=== PATIENT | female | born 1950 | race Caucasian/White ===

== ENCOUNTER → 2017-04-14 | Outpatient (POV) | LOC: OUTPT 00:01 | PROVIDERS: ATTEND Otolaryngology | DX: H91.90 Unspecified hearing loss, unspecified ear (principal) | CPT/HCPCS: 92557; 92567 ==

== ENCOUNTER 2018-05-24 13:00 | Outpatient (RCR) ==
--- NOTE | 2018-05-06 15:31 | RS.OPPTEV2 ---
Date of Note: 05/06/18 Visit #: 1 Date of Evaluation: 05/06/18 Payer Source: MEDICARE Date of Onset/Injury/Change in Status: 04/01/18 Surgery Performed?: No Treatment Diagnosis: closed displaced fx of proximal end of R humerus. History of Condition/Mechanism of Injury:: pt states she fell on concrete landing on her arm. Prior Level of Function.....Patient was independent with: ADL's, Self Care, Caregiving, Ambulation/Mobility, Community Integration/Access Functional Limitations: Reaching, Pushing, Pulling, Lifting, Carrying Current Subjective/complaints:: pt states she is doing pretty well. pt is anxious to get back to her normal activities. Treatment Side (optional): Right *Precautions: no lifting Medical History Medical History: Unremarkable Surgical History: Hysterectomy, Surgical History Comments:: lump removed from L breast, toe surgery Smoking Status: Never smoker Hx Home Medications: pepcid, vit D3, "water pill" flonase, tums, B12, vit C, fish oil Patient's Goals: be able to get back to babysitting grandchildren and laundry etc. Pain Assessment - Pain Description Pain Location: R shld Pain Description: Aching Current Pain Intensity: 0 at rest Functional Outcome Measure UE Functional Index: 13 (84%) - G Codes & Severity Modifier G Codes & Modifier: carrying, moving, and handling objects: current CM. carrying, moving, and handling objects: goal CK Source of G Code score: Upper extremity functional scale Observation - Observation Posture: Forward Head, Rounded Shoulders Handedness: Right Gait - Gait Pattern General Gait Pattern Observation: No Deviations/Normal General Range of Motion: LUE WFL's. BLE WFL's Muscle Strength: LUE 5/5. BLE 5/5 Shoulder ROM: Left WFL's Shoulder Muscle Strength: Left WFL's - Right Shoulder ROM Right Shoulder Flexion: 90 (AAROM) Right Shoulder Abduction: 41 (AAROM) Right Shoulder External Rotation: 27 Right Shoulder ROM Limitations: Soft Tissue Tightness, Muscle Weakness, Muscle Tone, Pain - Left Shoulder Strength Left Shoulder Flexion: 2 Poor Left Shoulder Extension: 3- Fair- Left Shoulder Abduction: 2 Poor Left Shoulder Adduction: 3- Fair- Left Shoulder External Rotation: 2 Poor Left Shoulder Internal Rotation: 3- Fair- Palpation Palpation Findings: Tenderness, Trigger Point Comments:: tenderness and trigger points noted in R Upper trap and upper scapula area Sensation - Sensation Right Upper Extremity: Intact/Normal Left Upper Extremity: Intact/Normal Right Lower Extremity: Intact/Normal Left Lower Extremity: Intact/Normal Balance - Sitting Balance Static Sitting Balance: Normal Dynamic Sitting Balance: Normal - Standing Balance Static Standing Balance: Normal Dynamic Standing Balance: Normal - Heat/Cryotherapy Treatment: Cryotherapy Comments:: R shld Interventions - Exercise/Activities/Manual Therapy Exercises/Activities: pt received gentle AAROM R shld flex, abd, IR/ER. pt also performed wand ex with shld flex and horizontal abd/add, isometric R shld ext, flex, add. Total minutes of Exercise: 14 Manual Therapy: n/a HOME EXERCISE PROGRAM: pt given written HEP including AAROM with wand for shld flex, horizontal add/abd, isometric shld flex, ext, add. Also instructed pt to continue pendulum ex. - Charges Timed Code Treatment Minutes: 49 Total Treatment Time: 54 Procedures billed for this date of service:: eval low, ex EVALUATION COMPLEXITY LEVEL EVALUATION COMPLEXITY LEVEL: HISTORY: Low (humerus fx), EXAM OF BODY SYSTEMS: Medium (ROM, strength, posture), CLINICAL PRESENTATION: Low, CLINICAL DECISION MAKING: Low Assessment Assessment: pt presents with decreased strength, ROM R shld. pt also with pain R shld. pt appears very motivated to participate with PT. Patient Education: Home Exercise Program, Education of Plan of Care Rehab Potential: Good Short Term Goals Goal #1: Improve R shld flex 100, abd 75 Goal to be met by: 05/27/18 Goal #2: Improved R UE strength shld flex 3-/5, abd 3-/5, Goal to be met by: 05/27/18 Goal #3: pt report decreased pain with activity at home Goal to be met by: 05/27/18 Goal #4: pt independent with initial HEP Goal to be met by: 05/27/18 Snf Goals Goal #1: Improve RUE shld flex 130 abd 115 Goal to be met by: 06/16/18 Goal #2: Improve RUE strength shld flex 3/5, abd 3/5, elbow flex/ext 4/5 Goal to be met by: 06/16/18 Goal #3: pt report ability to return to normal activities in the home Goal to be met by: 06/16/18 Plan - Treatment to be Provided Procedures: Therapeutic Exercises, Therapeutic Activity, Neuromuscular Rehab, Manual Therapy, Massage, Splinting/Taping, Patient Education Modalities: Electrical Stimulation, Cryotherapy, Hot Packs - Treatment Plan Frequency: 2-3 x per week Duration: 6 weeks ORDER # VISITS AND/OR THROUGH DATE: 06/16/18 - Treatment Code (1) Pain in joint, shoulder region Code(s): M25.519 - PAIN IN UNSPECIFIED SHOULDER Qualifiers: Laterality: right Qualified Code(s): M25.511 - Pain in right shoulder (2) Closed traumatic displaced fracture of proximal end of humerus Code(s): S42.209A - UNSP FRACTURE OF UPPER END OF UNSP HUMERUS, INIT FOR CLOS FX Qualifiers: Laterality: right (3) Joint stiffness Code(s): M25.60 - STIFFNESS OF UNSPECIFIED JOINT, NOT ELSEWHERE CLASSIFIED
--- NOTE | 2018-05-09 14:10 | RS.OPPTDN ---
Subjective Date of Note: 05/09/18 Visit #: 2 Date of Evaluation: 05/06/18 Payer Source: MEDICARE Treatment Diagnosis: closed displaced fx of proximal end of R humerus. Current Subjective/complaints:: Patient reports no pain at rest ,but is present the farther she reaches away from her body.She re-postions herself during the night to slep better. *Precautions: no lifting Pain Assessment - Pain Description Pain Location: R shoulder Pain Description: Sharp, Dull, Aching Current Pain Intensity: 0 at rest Worst Pain Intensity: 5 with reaching - Heat/Cryotherapy Treatment: Hot Pack, Cryotherapy (20 ins. heat before ,10 mins. after exercises) Interventions - Exercise/Activities/Manual Therapy Exercises/Activities: pt received gentle AAROM R shld flex, abd, IR/ER. pt also performed wand ex with shld flex and horizontal abd/add, isometric R shld ext, flex, add.Seted postural exercises of scapular motion ,shoulder shrugs ,forward/ backward circles. Total minutes of Exercise: 25 Manual Therapy: n/a Total minutes of Manual Therapy: 0 HOME EXERCISE PROGRAM: pt given written HEP including AAROM with wand for shld flex, horizontal add/abd, isometric shld flex, ext, add. Also instructed pt to continue pendulum ex. - Charges Timed Code Treatment Minutes: 30 Total Treatment Time: 60 Procedures billed for this date of service:: hp,ex 2,cp Assessment: Patient has sharp pain at available end range of abduction and overhead flexion today ,tolerates IR in short range.She is very guarded with ER today.She is motivated to improve. Patient Education: Education of diagnosis, Body/Joint mechanics, Home Exercise Program, Home Safety, Activity Modification, Education of Plan of Care Patient demonstrates compliance with HEP?: Yes Short Term Goals Goal #1: Improve R shld flex 100, abd 75 Goal to be met by: 05/27/18 Goal #2: Improved R UE strength shld flex 3-/5, abd 3-/5, Goal to be met by: 05/27/18 Goal #3: pt report decreased pain with activity at home Goal to be met by: 05/27/18 Goal #4: pt independent with initial HEP Goal to be met by: 05/27/18 Progress towards Goal:: Progressing Half-Way Goals Goal #1: Improve RUE shld flex 130 abd 115 Goal to be met by: 06/16/18 Goal #2: Improve RUE strength shld flex 3/5, abd 3/5, elbow flex/ext 4/5 Goal to be met by: 06/16/18 Goal #3: pt report ability to return to normal activities in the home Goal to be met by: 06/16/18 Plan PLAN OF CARE EXPIRES ON:: 06/16/18 ORDER # VISITS AND/OR THROUGH DATE: 06/16/18 PLAN: Continue PT to decrease pain ,increase ROM.
--- NOTE | 2018-05-10 15:37 | RS.OPPTDN ---
Subjective Date of Note: 05/10/18 Visit #: 3 Date of Evaluation: 05/06/18 Payer Source: MEDICARE Treatment Diagnosis: closed displaced fx of proximal end of R humerus. Current Subjective/complaints:: Patient reports mild discomfort with PROM, but increased mobility following treatment today. Continues to report tightness in the right upper traps. *Precautions: no lifting Pain Assessment - Pain Description Pain Location: right shoulder and upper traps. Current Pain Intensity: mild Worst Pain Intensity: mod+ - Heat/Cryotherapy Treatment: Hot Pack Comments:: [id number] to the right upper traps prior to MT and EX. Patient in sitting. Interventions - Exercise/Activities/Manual Therapy Exercises/Activities: Gentle PROM and AAROM right shoulder flex, abd, scaption, and IR/ER. Manually resistive shoulder ext and add in neutral position. Wand for chest press, short overhead flexion, and limited ER. Scap elevation and retraction. Total minutes of Exercise: 24mins Manual Therapy: Myofascial and soft tissue work along the bilateral upper traps with focus on the right side. Also right mid scap border and with posterior shoulder joint. Total minutes of Manual Therapy: 15mins HOME EXERCISE PROGRAM: pt given written HEP including AAROM with wand for shld flex, horizontal add/abd, isometric shld flex, ext, add. Also instructed pt to continue pendulum ex. - Charges Timed Code Treatment Minutes: 39mins Total Treatment Time: 54mins Procedures billed for this date of service:: HP, MT, EX2 Assessment: Patient reports well to MT and PROM with reports of pain reduction and increase in right shoulder joint flexibility. 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
--- NOTE | 2018-05-17 16:23 | RS.OPPTDN ---
Subjective Date of Note: 05/17/18 Visit #: 4 Date of Evaluation: 05/06/18 Payer Source: MEDICARE Treatment Diagnosis: closed displaced fx of proximal end of R humerus. Current Subjective/complaints:: Patient reports a reduction in pain and improvement in active reaching with the right UE. *Precautions: no lifting Pain Assessment - Pain Description Pain Location: right shoulder and bilateral upper traps Current Pain Intensity: mild Other Comments regarding Pain:: sharp with end range PROM - Heat/Cryotherapy Treatment: Hot Pack ([id number] to C-spine prior to MT and EX. Patient in sitting. ) Interventions - Exercise/Activities/Manual Therapy Exercises/Activities: Gentle PROM and AAROM right shoulder flex, abd, scaption, and IR/ER. Manually resistive shoulder ext and add in neutral position. Wand for chest press, short overhead flexion, and limited ER. Scap elevation and retraction. Began overhead pulleys for flexion and abduction. Total minutes of Exercise: 24mins Manual Therapy: Myofascial and soft tissue work along the bilateral upper traps with focus on the right side. Also right mid scap border and with posterior shoulder joint. Total minutes of Manual Therapy: 15mins HOME EXERCISE PROGRAM: pt given written HEP including AAROM with wand for shld flex, horizontal add/abd, isometric shld flex, ext, add. Also instructed pt to continue pendulum ex. - Charges Timed Code Treatment Minutes: 39mins Total Treatment Time: 54mins Procedures billed for this date of service:: HP, MT, EX2 Assessment: Patient demos an increase in passive flexion. Tolerates increase in exercise. Patient Education: Education of diagnosis, Body/Joint mechanics, Home Exercise Program Patient demonstrates compliance with HEP?: Yes Short Term Goals Goal #1: Improve R shld flex 100, abd 75 Goal to be met by: 05/27/18 Progress towards Goal:: Progressing Goal #2: Improved R UE strength shld flex 3-/5, abd 3-/5, Goal to be met by: 05/27/18 Goal #3: pt report decreased pain with activity at home Goal to be met by: 05/27/18 Progress towards Goal:: Progressing Goal #4: pt independent with initial HEP Goal to be met by: 05/27/18 Progress towards Goal:: Progressing Group Home Goals Goal #1: Improve RUE shld flex 130 abd 115 Goal to be met by: 06/16/18 Goal #2: Improve RUE strength shld flex 3/5, abd 3/5, elbow flex/ext 4/5 Goal to be met by: 06/16/18 Goal #3: pt report ability to return to normal activities in the home Goal to be met by: 06/16/18 Plan PLAN OF CARE EXPIRES ON:: 06/16/18 ORDER # VISITS AND/OR THROUGH DATE: 06/16/18 PLAN: Progress ROM and light active exercise to increase functional activity level.
--- NOTE | 2018-05-19 14:34 | RS.OPPTDN ---
Subjective Date of Note: 05/19/18 Visit #: 5 Date of Evaluation: 05/06/18 Payer Source: MEDICARE Treatment Diagnosis: closed displaced fx of proximal end of R humerus. Current Subjective/complaints:: Reports cervical ROM and muscle tension has improved. *Precautions: no lifting Pain Assessment - Pain Description Pain Location: right shoulder joint, upper arm, bilateral upper traps Pain Description: Aching Current Pain Intensity: no pain in shoulder at rest, mild in upper traps - Heat/Cryotherapy Treatment: Hot Pack ([id number] to the cervical spine and UT prior to MT and EX. Patient in sitting. ) Interventions - Exercise/Activities/Manual Therapy Exercises/Activities: Gentle PROM and AAROM right shoulder flex, abd, scaption, and IR/ER. Manually resistive shoulder ext and add in neutral position. Scap retraction and elevation/depression. Began cuff series, 4 directions. Continues wand and overhead pulleys at home. Active and active assisted flexion in standing. Total minutes of Exercise: 24mins Manual Therapy: Myofascial and soft tissue work along the bilateral upper traps with focus on the right side. Also right mid scap border and with posterior shoulder joint. Total minutes of Manual Therapy: 15mins HOME EXERCISE PROGRAM: pt given written HEP including AAROM with wand for shld flex, horizontal add/abd, isometric shld flex, ext, add. Also instructed pt to continue pendulum ex. Cuff series no weights. - Objective Findings Observations,measurements,etc.: Passive right shoulder flexion to approx 105 degrees in supine. Active right shoulder flexion increased to 90 degrees today. - Charges Timed Code Treatment Minutes: 39mins Total Treatment Time: 54mins Procedures billed for this date of service:: HP, MT, EX2 Assessment: Patient progressing with active and passive motion of the right shoulder. Patient Education: Body/Joint mechanics, Home Exercise Program, Activity Modification Comments: Discussion of safety with ADL's. 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
--- NOTE | 2018-05-24 14:52 | RS.OPPTDN ---
Subjective Date of Note: 05/24/18 Visit #: 6 Date of Evaluation: 05/06/18 Payer Source: MEDICARE Treatment Diagnosis: closed displaced fx of proximal end of R humerus. Current Subjective/complaints:: Patient reports she is reaaching a little bit better. States she is consistently working on HEP. *Precautions: no lifting Pain Assessment - Pain Description Pain Location: right shoulder Current Pain Intensity: No pain at rest Other Comments regarding Pain:: Pain at end range - Heat/Cryotherapy Treatment: Hot Pack ([id number] to the bilateral traps and shoulders prior to MT and EX. Patient in sitting. ) Interventions - Exercise/Activities/Manual Therapy Exercises/Activities: Gentle PROM and AAROM right shoulder flex, abd, scaption, and IR/ER. Manually resistive shoulder ext and add in neutral position. Scap retraction and elevation/depression. Distraction and gentle grade I and II joint mobs. Reveiwed cuff series, wand and overhead pulleys for HEP. Active and active assisted flexion in standing. Total minutes of Exercise: 23mins Manual Therapy: Myofascial and soft tissue work along the bilateral upper traps with focus on the right side. Also right mid scap border and with posterior shoulder joint. Total minutes of Manual Therapy: 15mins HOME EXERCISE PROGRAM: pt given written HEP including AAROM with wand for shld flex, horizontal add/abd, isometric shld flex, ext, add. Also instructed pt to continue pendulum ex. Cuff series no weights. - Objective Findings Observations,measurements,etc.: In supine, paient demos 124 degrees AA right shoulder flexion. - Charges Timed Code Treatment Minutes: 38mins Total Treatment Time: 53mins Procedures billed for this date of service:: HP, MT, EX2 Assessment: Patient progressing with ROM and with exercise. Patient Education: Home Exercise Program, Home Safety, Activity Modification Patient demonstrates compliance with HEP?: Yes Short Term Goals Goal #1: Improve R shld flex 100, abd 75 Goal to be met by: 05/27/18 Progress towards Goal:: Partially Met Goal #2: Improved R UE strength shld flex 3-/5, abd 3-/5, Goal to be met by: 05/27/18 Goal #3: pt report decreased pain with activity at home Goal to be met by: 05/27/18 Progress towards Goal:: Partially Met Goal #4: pt independent with initial HEP Goal to be met by: 05/27/18 Progress towards Goal:: Met Intermediate Goals Goal #1: Improve RUE shld flex 130 abd 115 Goal to be met by: 06/16/18 Progress towards goal: Progressing Goal #2: Improve RUE strength shld flex 3/5, abd 3/5, elbow flex/ext 4/5 Goal to be met by: 06/16/18 Goal #3: pt report ability to return to normal activities in the home Goal to be met by: 06/16/18 Plan PLAN OF CARE EXPIRES ON:: 06/16/18 ORDER # VISITS AND/OR THROUGH DATE: 06/16/18 PLAN: Continue manual therapy and progressive exercise to increase strength and ROM.
== END 2018-05-24 23:59 ==
PROVIDERS: ATTEND Orthopaedic Surgery
DX: S42.291D Other displaced fracture of upper end of right humerus, subsequent encounter for fracture with routine healing (principal); M25.511 Pain in right shoulder; M25.60 Stiffness of unspecified joint, not elsewhere classified

== ENCOUNTER 2018-06-23 08:15 | Outpatient (RCR) ==
--- NOTE | 2018-05-26 16:37 | RS.OPPTDN ---
Subjective Date of Note: 05/26/18 Visit #: 7 Date of Evaluation: 05/06/18 Payer Source: MEDICARE Treatment Diagnosis: closed displaced fx of proximal end of R humerus. Current Subjective/complaints:: Patient says she is able to see improvements with ROM and pain level since beginning therapy. Reports she is performing HEP daily, but not needing to rely on pain medication other than occasional OTC meds. *Precautions: no lifting Pain Assessment - Pain Description Pain Location: 01/01 - Heat/Cryotherapy Treatment: Hot Pack (over the R shoulder and UT in sitting x 20 mins) Interventions - Exercise/Activities/Manual Therapy Exercises/Activities: Gentle PROM and AAROM right shoulder flex, abd, scaption, and IR/ER. Manually resistive shoulder ext and add in neutral position. Scap retraction and elevation/depression. Distraction and gentle grade I and II joint mobs. Reviewed HeP. Total minutes of Exercise: 23 Manual Therapy: Myofascial and soft tissue work along the bilateral upper traps with focus on the right side. Also right mid scap border and with posterior shoulder joint. Total minutes of Manual Therapy: 16 HOME EXERCISE PROGRAM: pt given written HEP including AAROM with wand for shld flex, horizontal add/abd, isometric shld flex, ext, add. Also instructed pt to continue pendulum ex. Cuff series no weights. - Charges Timed Code Treatment Minutes: 39 Total Treatment Time: 59 Procedures billed for this date of service:: hp,MT, EX2 Assessment: Patient demo mod muscle guarding to the R UT and scapular region. Improved shoulder AROM to ~125-130 degrees avg flexion in supine, ABD limited to ~60 degrees and more difficult to vijaya than flexion, but has improved since eval. Patient compliant with HEP and admits improved pain level with leaving today. 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
--- NOTE | 2018-05-31 16:32 | RS.OPPTDN ---
Subjective Date of Note: 05/31/18 Visit #: 8 Date of Evaluation: 05/06/18 Payer Source: MEDICARE Treatment Diagnosis: closed displaced fx of proximal end of R humerus. Current Subjective/complaints:: Patient says she had increased soreness after last session, but says she feels she has more mobility and is satisfied currently with her progression. *Precautions: no lifting Pain Assessment - Pain Description Pain Location: along the R biceps - Heat/Cryotherapy Treatment: Hot Pack (R side of neck/shoulder and along biceps) Interventions - Exercise/Activities/Manual Therapy Exercises/Activities: Gentle PROM and AAROM right shoulder flex, abd, scaption, and IR/ER. Manually resistive shoulder ext and add in neutral position. Scap retraction and elevation/depression. Distraction and gentle grade I and II joint mobs. 1# wand for bilateral shoulder flexion and chest presses x 10 ea. Standing: active flexion and red tband for scap retraction x 10. Reviewed HeP. Total minutes of Exercise: 38 Manual Therapy: na HOME EXERCISE PROGRAM: pt given written HEP including AAROM with wand for shld flex, horizontal add/abd, isometric shld flex, ext, add. Also instructed pt to continue pendulum ex. Cuff series no weights. - Charges Timed Code Treatment Minutes: 38 Total Treatment Time: 58 Procedures billed for this date of service:: hp, ex3 Assessment: Patient progressing with ROM (passive shoulder flexion to 129 degrees in supine). Patient recently with increased pain, but improving with vijaya to advancing therex in dept and functionally at home. Patient Education: Body/Joint mechanics, Home Exercise Program, Education of Plan of Care Patient demonstrates compliance with HEP?: Yes Short Term Goals Goal #1: Improve R shld flex 100, abd 75 Goal to be met by: 05/27/18 Progress towards Goal:: Partially Met Goal #2: Improved R UE strength shld flex 3-/5, abd 3-/5, Goal to be met by: 05/27/18 Progress towards Goal:: Met Goal #3: pt report decreased pain with activity at home Goal to be met by: 05/27/18 Progress towards Goal:: Partially Met Goal #4: pt independent with initial HEP Goal to be met by: 05/27/18 Progress towards Goal:: Met Fpc Goals Goal #1: Improve RUE shld flex 130 abd 115 Goal to be met by: 06/16/18 Progress towards goal: Progressing Goal #2: Improve RUE strength shld flex 3/5, abd 3/5, elbow flex/ext 4/5 Goal to be met by: 06/16/18 Goal #3: pt report ability to return to normal activities in the home Goal to be met by: 06/16/18 Plan PLAN OF CARE EXPIRES ON:: 06/16/18 ORDER # VISITS AND/OR THROUGH DATE: 06/16/18 PLAN: Patient to continue progressing therex to the R shoulder
--- NOTE | 2018-06-02 16:01 | RS.OPPTDN ---
Subjective Date of Note: 06/02/18 Visit #: 9 Date of Evaluation: 05/06/18 Payer Source: MEDICARE Treatment Diagnosis: closed displaced fx of proximal end of R humerus. Current Subjective/complaints:: Patient reports he ROM is tight but improving. *Precautions: no lifting Pain Assessment - Pain Description Pain Location: right shoulder Current Pain Intensity: mild to mod at end range - Heat/Cryotherapy Treatment: Hot Pack ([id number] to the bilateral upper traps and right upper arm prior to EX. Patient in sitting. ) Interventions - Exercise/Activities/Manual Therapy Exercises/Activities: Gentle PROM and AAROM right shoulder flex, abd, scaption, and IR/ER. Manually resistive shoulder ext and add in neutral position. Distraction and gentle grade I and II joint mobs. 1# wand for bilateral shoulder flexion and chest presses x 10 ea. Isometric shoulder flex, ext, horz add and horz abd with shoulder at 90 degrees flexion. Sitting: AA flex, scap, and abd. 1# wand for bilateral shoulder flexion. Reveiwed cuff series. Total minutes of Exercise: 41mins Manual Therapy: na HOME EXERCISE PROGRAM: pt given written HEP including AAROM with wand for shld flex, horizontal add/abd, isometric shld flex, ext, add. Also instructed pt to continue pendulum ex. Cuff series no weights. - Charges Timed Code Treatment Minutes: 41mins Total Treatment Time: 56mins Procedures billed for this date of service:: HP, EX3 Assessment: Focus on end range stretching today. Patient Education: Home Exercise Program Patient demonstrates compliance with HEP?: Yes Short Term Goals Goal #1: Improve R shld flex 100, abd 75 Goal to be met by: 05/27/18 Progress towards Goal:: Partially Met Goal #2: Improved R UE strength shld flex 3-/5, abd 3-/5, Goal to be met by: 05/27/18 Progress towards Goal:: Met Goal #3: pt report decreased pain with activity at home Goal to be met by: 05/27/18 Progress towards Goal:: Partially Met Goal #4: pt independent with initial HEP Goal to be met by: 05/27/18 Progress towards Goal:: Met Fingerprint Classifier Goals Goal #1: Improve RUE shld flex 130 abd 115 Goal to be met by: 06/16/18 Progress towards goal: Progressing Goal #2: Improve RUE strength shld flex 3/5, abd 3/5, elbow flex/ext 4/5 Goal to be met by: 06/16/18 Progress towards goal: Progressing Goal #3: pt report ability to return to normal activities in the home Goal to be met by: 06/16/18 Progress towards goal: Progressing Plan PLAN OF CARE EXPIRES ON:: 06/16/18 ORDER # VISITS AND/OR THROUGH DATE: 06/16/18 PLAN: Progress with ROM to increase patients functional activity level.
--- NOTE | 2018-06-03 15:31 | RS.OPPTDN ---
Subjective Date of Note: 06/03/18 Visit #: 10 Date of Evaluation: 05/06/18 Payer Source: MEDICARE Treatment Diagnosis: closed displaced fx of proximal end of R humerus. Current Subjective/complaints:: Patient says her mobility is better in the R shoulder and is able to lift her arm higher with less trouble. She says she is working on shoulder pulleys at home. *Precautions: no lifting Pain Assessment - Pain Description Pain Location: R shoulder Pain Description: Tightness, Aching - Heat/Cryotherapy Treatment: Hot Pack (20 mins to the R upper arm and R UT in sitting) Interventions - Exercise/Activities/Manual Therapy Exercises/Activities: Gentle PROM and AAROM right shoulder flex, abd, scaption, and IR/ER. Manually resistive shoulder ext and add in neutral position. Distraction and gentle grade I and II joint mobs. 1# wand for bilateral shoulder flexion and chest presses x 10 ea. Isometric shoulder flex, ext, horz add and horz abd with shoulder at 90 degrees flexion. Sitting: AA flex, scap, and abd. 1# wand for bilateral shoulder flexion. Measurements taken and she completed UE Functional Index. Total minutes of Exercise: 38 Manual Therapy: na HOME EXERCISE PROGRAM: pt given written HEP including AAROM with wand for shld flex, horizontal add/abd, isometric shld flex, ext, add. Also instructed pt to continue pendulum ex. Cuff series no weights. - Objective Findings Observations,measurements,etc.: AA shoulder flexion in supine to 133 degrees. Active shoulder flexion in sitting to 103 degrees - Charges Timed Code Treatment Minutes: 38 Total Treatment Time: 58 Procedures billed for this date of service:: hp, ex3 Assessment: Improving ROM, but remains with scapular compensation with AROM. Improved functional Index and self reports continued improvement also. Patient Education: Home Exercise Program, Education of Plan of Care Patient demonstrates compliance with HEP?: Yes Short Term Goals Goal #1: Improve R shld flex 100, abd 75 Goal to be met by: 05/27/18 Progress towards Goal:: Partially Met Comments:: ABD still somewhat limited, met flexion goal 103 Goal #2: Improved R UE strength shld flex 3-/5, abd 3-/5, Goal to be met by: 05/27/18 Progress towards Goal:: Met Goal #3: pt report decreased pain with activity at home Goal to be met by: 05/27/18 Progress towards Goal:: Partially Met Goal #4: pt independent with initial HEP Goal to be met by: 05/27/18 Progress towards Goal:: Met Awning Maker And Installer Goals Goal #1: Improve RUE shld flex 130 abd 115 Goal to be met by: 06/16/18 Progress towards goal: Progressing Goal #2: Improve RUE strength shld flex 3/5, abd 3/5, elbow flex/ext 4/5 Goal to be met by: 06/16/18 Progress towards goal: Progressing Goal #3: pt report ability to return to normal activities in the home Goal to be met by: 06/16/18 Progress towards goal: Progressing Plan PLAN OF CARE EXPIRES ON:: 06/16/18 ORDER # VISITS AND/OR THROUGH DATE: 06/16/18 PLAN: Patient has 2 remaining sessions. She does not return to ortho until 06/16. She may benefit from attending further orders until that time.
--- NOTE | 2018-06-07 14:50 | RS.OPPTDN ---
Subjective Date of Note: 06/07/18 Visit #: 11 Date of Evaluation: 05/06/18 Payer Source: MEDICARE Treatment Diagnosis: closed displaced fx of proximal end of R humerus. Current Subjective/complaints:: Patient says she has started dusting with the R arm and stops if she has sharp pain. So far, she says she has just felt tiredness and mild soreness. She says she also has started ironing without elevated pain. She expresses being happy about her progress at this point. *Precautions: no lifting - Heat/Cryotherapy Treatment: Hot Pack (20 mins to the R upper arm and R UT in sitting) Interventions - Exercise/Activities/Manual Therapy Exercises/Activities: PROM and AAROM right shoulder flex, abd, scaption, and IR/ ER. Manually resistive shoulder ext and add in neutral position. Long axis distraction and gentle grade I and II joint mobs. 2# wand for bilateral shoulder flexion and chest presses x 10 ea. 2# elbow flex/ext, sup/pron/ wrist flex/ext x 15. Isometric shoulder flex, ext, horz add and horz abd with shoulder at 90 degrees flexion. Sitting: AAROM with 1# wand for flex/abd, Active flex, abd. x 8. Red tband scap retraction x 10. Total minutes of Exercise: 38 Manual Therapy: na HOME EXERCISE PROGRAM: pt given written HEP including AAROM with wand for shld flex, horizontal add/abd, isometric shld flex, ext, add. Also instructed pt to continue pendulum ex. Cuff series no weights. - Charges Timed Code Treatment Minutes: 38 Total Treatment Time: 58 Procedures billed for this date of service:: hp, ex3 Assessment: Patient debrao increased functional tasks at home with only general muscle fatigue and soreness. She demo increased Active shoulder flexion to 110 degrees in sitting and 90 degrees of ABD in sitting before compensation/leaning. Patient Education: Home Exercise Program, Education of Plan of Care Patient demonstrates compliance with HEP?: Yes Short Term Goals Goal #1: Improve R shld flex 100, abd 75 Goal to be met by: 05/27/18 Progress towards Goal:: Met Goal #2: Improved R UE strength shld flex 3-/5, abd 3-/5, Goal to be met by: 05/27/18 Progress towards Goal:: Met Goal #3: pt report decreased pain with activity at home Goal to be met by: 05/27/18 Progress towards Goal:: Partially Met Goal #4: pt independent with initial HEP Goal to be met by: 05/27/18 Progress towards Goal:: Met Counter Hand Goals Goal #1: Improve RUE shld flex 130 abd 115 Goal to be met by: 06/16/18 Progress towards goal: Progressing Goal #2: Improve RUE strength shld flex 3/5, abd 3/5, elbow flex/ext 4/5 Goal to be met by: 06/16/18 Progress towards goal: Progressing Goal #3: pt report ability to return to normal activities in the home Goal to be met by: 06/16/18 Progress towards goal: Progressing Plan PLAN OF CARE EXPIRES ON:: 06/16/18 ORDER # VISITS AND/OR THROUGH DATE: 06/16/18 PLAN: Patient to continue progressive therex for the R UE until follow up with 06/16/18.
--- NOTE | 2018-06-09 15:05 | RS.OPPTDN ---
Subjective Date of Note: 06/09/18 Visit #: 12 Date of Evaluation: 05/06/18 Payer Source: MEDICARE Treatment Diagnosis: closed displaced fx of proximal end of R humerus. Current Subjective/complaints:: Patient denies any increase in pain with progressing exercises last session. She says she will do what ever she needs to to gain ROM and more function of the R shoulder. States she would like to continue PT even after she sees her ortho next week. *Precautions: no lifting - Heat/Cryotherapy Treatment: Hot Pack (20 mins to the R shoulder in sitting) Interventions - Exercise/Activities/Manual Therapy Exercises/Activities: PROM and AAROM right shoulder flex, abd, scaption, and IR/ ER. Manually resistive shoulder ext and add in neutral position. Long axis distraction and gentle grade I and II joint mobs. 2 1/2# wand for bilateral shoulder flexion and chest presses x 10 ea. 2# elbow flex/ext, sup/pron/ wrist flex/ext x 15. 1# for punches x 10. Isometric shoulder flex, ext, horz add and horz abd with shoulder at 90 degrees flexion. 7# digiflexor x 15 reps. Finished with more PROM all dir. Sitting: AAROM with 1# wand for flex/abd, Active flex, abd. x 8. Red tband scap retraction x 10. Horizontal abd with red tband x 3 due to R upper arm getting a catch. Total minutes of Exercise: 41 Manual Therapy: na HOME EXERCISE PROGRAM: pt given written HEP including AAROM with wand for shld flex, horizontal add/abd, isometric shld flex, ext, add. Also instructed pt to continue pendulum ex. Cuff series no weights. - Objective Findings Observations,measurements,etc.: Active shoulder flexion 133 degrees in supine - Charges Timed Code Treatment Minutes: 41 Total Treatment Time: 61 Procedures billed for this date of service:: hp, ex3 Assessment: Patient continues to progress slowly with active motion to the R UE. She maintains eagerness to further her therapy and is very compliant with HEP. She maintains low pain level and advancing with progressive strengthening as well. Less scapular compensation noted with sitting active flexion/abd. Limited ER to ~60% and would benefit from continued therapy to improve this and active flexion to return to PLOF. Patient Education: Education of diagnosis, Home Exercise Program, Education of Plan of Care Patient demonstrates compliance with HEP?: Yes Short Term Goals Goal #1: Improve R shld flex 100, abd 75 Goal to be met by: 05/27/18 Progress towards Goal:: Met Goal #2: Improved R UE strength shld flex 3-/5, abd 3-/5, Goal to be met by: 05/27/18 Progress towards Goal:: Met Goal #3: pt report decreased pain with activity at home Goal to be met by: 05/27/18 Progress towards Goal:: Partially Met Goal #4: pt independent with initial HEP Goal to be met by: 05/27/18 Progress towards Goal:: Met Retirement Goals Goal #1: Improve RUE shld flex 130 abd 115 Goal to be met by: 06/16/18 Progress towards goal: Progressing Goal #2: Improve RUE strength shld flex 3/5, abd 3/5, elbow flex/ext 4/5 Goal to be met by: 06/16/18 Progress towards goal: Progressing Goal #3: pt report ability to return to normal activities in the home Goal to be met by: 06/16/18 Progress towards goal: Progressing Plan PLAN OF CARE EXPIRES ON:: 06/16/18 ORDER # VISITS AND/OR THROUGH DATE: 06/16/18 PLAN: Continue BIW next week and return to MD
--- NOTE | 2018-06-13 14:42 | RS.OPPTDN ---
Subjective Date of Note: 06/13/18 Visit #: 13 Date of Evaluation: 05/06/18 Payer Source: MEDICARE Treatment Diagnosis: closed displaced fx of proximal end of R humerus. Current Subjective/complaints:: Patient says she is happy to show me that she can raise her arm higher. She says she continues to work on HEP. *Precautions: no lifting - Heat/Cryotherapy Treatment: Hot Pack (over the R shoulder and upper arm in sitting x 20 mins) Interventions - Exercise/Activities/Manual Therapy Exercises/Activities: PROM and AAROM right shoulder flex, abd, scaption, and IR/ ER. Manually resistive shoulder ext and add in neutral position. Long axis distraction and gentle grade I and II joint mobs. 3# wand for bilateral shoulder flexion and chest presses x 10 ea. 3# elbow flex/ext, sup/pron/ wrist flex/ext x 15. 2# for punches x 10. Isometric shoulder flex, ext, horz add and horz abd with shoulder at 90 degrees flexion. 7# digiflexor x 15 reps. Green tband for horizontal abd x 5. 1 1/2# cuff wt for active R shoulder flexion x 15. Standin 1/2#cuff R arm wall slides for flexion/abd x 8. Functional reaching for cones with 1 1/2# x 10, stacking from trunk level to overhead (~105 degrees). Total minutes of Exercise: 38 Manual Therapy: na HOME EXERCISE PROGRAM: pt given written HEP including AAROM with wand for shld flex, horizontal add/abd, isometric shld flex, ext, add. Also instructed pt to continue pendulum ex. Cuff series no weights. - Charges Timed Code Treatment Minutes: 38 Total Treatment Time: 58 Procedures billed for this date of service:: hp, ex3 Assessment: Patient gayathri increased active R shoulder flexion to ~108 degrees today in standing. She is able to vijaya more progressive stretching, but did feel achy as the day advances due to weather changes. Patient Education: Home Exercise Program, Education of Plan of Care Patient demonstrates compliance with HEP?: Yes Short Term Goals Goal #1: Improve R shld flex 100, abd 75 Goal to be met by: 05/27/18 Progress towards Goal:: Met Goal #2: Improved R UE strength shld flex 3-/5, abd 3-/5, Goal to be met by: 05/27/18 Progress towards Goal:: Met Goal #3: pt report decreased pain with activity at home Goal to be met by: 05/27/18 Progress towards Goal:: Partially Met Goal #4: pt independent with initial HEP Goal to be met by: 05/27/18 Progress towards Goal:: Met Stunt Double Goals Goal #1: Improve RUE shld flex 130 abd 115 Goal to be met by: 06/16/18 Progress towards goal: Progressing Goal #2: Improve RUE strength shld flex 3/5, abd 3/5, elbow flex/ext 4/5 Goal to be met by: 06/16/18 Progress towards goal: Met Goal #3: pt report ability to return to normal activities in the home Goal to be met by: 06/16/18 Progress towards goal: Progressing Plan PLAN OF CARE EXPIRES ON:: 06/16/18 ORDER # VISITS AND/OR THROUGH DATE: 06/16/18 PLAN: Continue x 1 more visit per POC. Patient to follow up with MD this week.
--- NOTE | 2018-06-15 14:47 | RS.OPPTDN ---
Subjective Date of Note: 06/15/18 Visit #: 14 Date of Evaluation: 05/06/18 Payer Source: MEDICARE Treatment Diagnosis: closed displaced fx of proximal end of R humerus. Current Subjective/complaints:: Patient says she was able to curl her hair for the first time today. She says she has had her sister do it since her surgery. She says she has been performing all ADLs and housework now. She only has a little trouble with reaching high over head (which she adds is seldom needed). She is practicing reaching in/out cabinets for exercise, ironing, and vacuuming. *Precautions: no lifting - Heat/Cryotherapy Treatment: Hot Pack (15 mins R shoulder in sitting) Interventions - Exercise/Activities/Manual Therapy Exercises/Activities: PROM and AAROM right shoulder flex, abd, scaption, and IR/ ER. Manually resistive shoulder ext and add in neutral position. Long axis distraction and gentle grade I and II joint mobs. 3# wand for bilateral shoulder flexion and chest presses x 10 ea. 3# elbow flex/ext, sup/pron/ wrist flex/ext x 15. 2# for punches x 10. 2# cuff wt for active R shoulder flexion x 15. Green tband for R shoulder ER x 10. UBE x 2 mins for/2 retro/2 for with 2# wt on R arm. Standin#cuff R arm wall slides for flexion/abd x 8. Functional reaching for cones with 2# x 10, stacking from trunk level to overhead (~120 degrees). Red and green tband for pull downs, shoulder flexion/ extension x 10. Gave red and green tband for above exercises for home. Total minutes of Exercise: 40 Manual Therapy: na HOME EXERCISE PROGRAM: pt given written HEP including AAROM with wand for shld flex, horizontal add/abd, isometric shld flex, ext, add. Also instructed pt to continue pendulum ex. Cuff series no weights. 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 She is now able to reach with weight onto the R UE and improved coordination and control showing less shakiness during eccentric contractions and less scapular compensation. Patient Education: Home Exercise Program, Education of Plan of Care Patient demonstrates compliance with HEP?: Yes Short Term Goals Goal #1: Improve R shld flex 100, abd 75 Goal to be met by: 05/27/18 Progress towards Goal:: Met Goal #2: Improved R UE strength shld flex 3-/5, abd 3-/5, Goal to be met by: 05/27/18 Progress towards Goal:: Met Goal #3: pt report decreased pain with activity at home Goal to be met by: 05/27/18 Progress towards Goal:: Met Goal #4: pt independent with initial HEP Goal to be met by: 05/27/18 Progress towards Goal:: Met Information Systems Project Manager Goals Goal #1: Improve RUE shld flex 130 abd 115 Goal to be met by: 06/16/18 Progress towards goal: Progressing Comments: flexion 125 and 106 for ABD Goal #2: Improve RUE strength shld flex 3/5, abd 3/5, elbow flex/ext 4/5 Goal to be met by: 06/16/18 Progress towards goal: Met Goal #3: pt report ability to return to normal activities in the home Goal to be met by: 06/16/18 Progress towards goal: Met Plan PLAN OF CARE EXPIRES ON:: 06/16/18 ORDER # VISITS AND/OR THROUGH DATE: 06/16/18 PLAN: Patient returns to MD tomorrow. Recommend Discharge as she has returned to all functional activities at home.
--- NOTE | 2018-06-16 15:44 | RS.PTSUM ---
Progress Note/Summary Date of Note: 06/03/18 Date of Evaluation: 05/06/18 Number of Visits: 10 Reporting Period for this Progress Note: 05/06/18-06/03/18 Current Complaints/Gains: pt states she is able to move her arm higher without as much pain. She is also using her shld pulleys at home. Objective Measurements/Presentation: AAROM R shld flex 133 in supine, AROM R shld flex in sitting is 103. pt is progressing slowly with progressive strengthening. She continues to demonstrate scapular compensation with AROM. G Codes: carrying moving and handling current CK. carrying moving and handling goal CK Source of G Code Score: UE functional scale - Short Term Goals Goal #1: Improve R shld flex 100, abd 75 Goal to be met by: 05/27/18 Progress towards Goal:: Met Goal #2: Improved R UE strength shld flex 3-/5, abd 3-/5, Goal to be met by: 05/27/18 Progress towards Goal:: Met Goal #3: pt report decreased pain with activity at home Goal to be met by: 05/27/18 Progress towards Goal:: Met Goal #4: pt independent with initial HEP Goal to be met by: 05/27/18 Progress towards Goal:: Met - Alf Goals Goal #1: Improve RUE shld flex 130 abd 115 Goal to be met by: 06/16/18 Progress towards goal: Progressing Goal #2: Improve RUE strength shld flex 3/5, abd 3/5, elbow flex/ext 4/5 Goal to be met by: 06/16/18 Progress towards goal: Met Goal #3: pt report ability to return to normal activities in the home Goal to be met by: 06/16/18 Progress towards goal: Met - Assessment Assessment of Improvement/Progress: pt has met all STG and LTG 2, 3. Feel pt could benefit from continued PT for ROM and improving function. Summary: Patient has made progress towards goals., Patient demonstrates potential to gain increased function with therapy - Plan Plan: Complete remaining visits on current order. Frequency: 2 X week Duration: 2 weeks PLAN OF CARE EXPIRES ON:: 06/16/18 ORDER # VISITS AND/OR THROUGH DATE: 06/16/18
--- NOTE | 2018-06-21 10:15 | RS.PTSUM ---
Progress Note/Summary Date of Note: 06/21/18 Date of Evaluation: 05/06/18 Number of Visits: 16 Reporting Period for this Progress Note: 05/06/18-06/21/18 Current Complaints/Gains: pt states she feels she has improved however wants to get back to full motion and ability to perform all household duties with her R UE which is her dominant arm. pt states that MD ordered to continue PT for 4 more weeks. Objective Measurements/Presentation: R UE shld flex 140, shld abd 140 in supine. RUE shld flex 130 in sitting. Strength RUE shld flex 3-/5, abd 3/5, elbow flex/ext 4+/5. pt presents with compensatory movement in R scapula with shld flex. pt with pain with end range of motion. G Codes: carrying moving and handling current CK. carrying moving and handling goal CJ (new goal) Source of G Code Score: upper extremity functional index - Short Term Goals Goal #1: Improve R shld flex 100, abd 75 Goal to be met by: 05/27/18 Progress towards Goal:: Met Goal #2: Improved R UE strength shld flex 3-/5, abd 3-/5, Goal to be met by: 05/27/18 Progress towards Goal:: Met Goal #3: pt report decreased pain with activity at home Goal to be met by: 05/27/18 Progress towards Goal:: Met Goal #4: pt independent with initial HEP Goal to be met by: 05/27/18 Progress towards Goal:: Met - Alf Goals Goal #1: Improve RUE shld flex 160 abd 150 Goal to be met by: 07/08/18 (goal revised 06/21/18) Goal #2: Improve RUE strength shld flex 3+/5, abd 3+/5, elbow flex/ext 5/5 Goal to be met by: 07/08/18 (goal revised 06/21/18) Goal #3: pt report ability to return to normal activities in the home Goal to be met by: 07/08/18 Goal #4: pt with improved ROM to allow pt to curl hair as well as reach bra strap Goal to be met by: 07/08/18 - Assessment Assessment of Improvement/Progress: pt had previously met all STG and LTG 2. pt has made significant progress with ROM, strength as well as decreased pain. Goals revised to include functional goals in alignment with patients goals. RUE being dominant arm is limiting ability to perform normal daily activities. pt continues with pain with end range of motion. Feel pt would continue to benefit from skilled PT for therex for strengthening, ROM to improve functional ability in the home. Summary: Patient has made progress towards goals., Patient demonstrates potential to gain increased function with therapy - Plan Plan: Continue Plan of Care (new order received from ) Comments: Focus on strengthening and working on extension and abd. Focus on reaching and maintaining ROM for functional time frame. Frequency: 2 X week Duration: 3 weeks PLAN OF CARE EXPIRES ON:: 07/08/18 ORDER # VISITS AND/OR THROUGH DATE: 07/08/18
--- NOTE | 2018-06-21 10:29 | RS.OPPTDN ---
Subjective Date of Note: 06/17/18 Visit #: 15 Date of Evaluation: 05/06/18 Payer Source: MEDICARE Treatment Diagnosis: closed displaced fx of proximal end of R humerus. Current Subjective/complaints:: Patient says she is pleased to continue therapy to gain more mobility to the R shoulder. She says that she is improving with reaching at home for items/tasks, but definitely feels she needs to work on duties above shoulder height. *Precautions: no lifting Interventions - Exercise/Activities/Manual Therapy Exercises/Activities: PROM and AAROM right shoulder flex, abd, scaption, and IR/ ER. Manually resistive shoulder ext and add in neutral position. Long axis distraction and gentle grade I and II joint mobs. 3# wand for bilateral shoulder flexion and chest presses x 15 ea. 3# elbow flex/ext, sup/pron/ wrist flex/ext x 15. 2# for punches x 10. 2# dumbell for active R shoulder flexion x 15. Green tband for R shoulder ER x 10 and scap retraction with therapy wand x 15. UBE unavailable. Standin# ict quality assurance engineer ball for functional reach on shelf multiple reps and for ABD. 1# dumbell for active shoulder flexion multiple reps with overpressures. Total minutes of Exercise: 45 Manual Therapy: na HOME EXERCISE PROGRAM: pt given written HEP including AAROM with wand for shld flex, horizontal add/abd, isometric shld flex, ext, add. Also instructed pt to continue pendulum ex. Cuff series no weights. - Charges Timed Code Treatment Minutes: 45 Total Treatment Time: 45 Procedures billed for this date of service:: ex3 Assessment: Patient presents with new order to continue BIW x 4 more weeks. Patient was reassessed last week to finish out order x 4 more sessions to further mobility and strength particularly overhead. She continues to demo less compensation with active motions, but could definitely benefit from further flexibility assistedly and building strength in functional ranges. Patient Education: Education of Plan of Care Patient demonstrates compliance with HEP?: Yes Short Term Goals Goal #1: Improve R shld flex 100, abd 75 Goal to be met by: 05/27/18 Progress towards Goal:: Met Goal #2: Improved R UE strength shld flex 3-/5, abd 3-/5, Goal to be met by: 05/27/18 Progress towards Goal:: Met Goal #3: pt report decreased pain with activity at home Goal to be met by: 05/27/18 Progress towards Goal:: Met Goal #4: pt independent with initial HEP Goal to be met by: 05/27/18 Progress towards Goal:: Met Detention Goals Goal #1: Improve RUE shoulder flexion 160 abduction 150 Goal to be met by: 07/08/18 Progress towards goal: Progressing Goal #2: Improve RUE strength shld flex 3+/5, abd 3+/5, elbow flex/ext 5/5 Goal to be met by: 07/08/18 Progress towards goal: Progressing Goal #3: Patient report ability to return to normal activities at home Goal to be met by: 07/08/18 Progress towards goal: Progressing Goal #4: Pt with improved ROM to allow pt to curl hair as well as reach bra strap Goal to be met by: 07/08/18 Progress towards goal: Progressing Plan PLAN OF CARE EXPIRES ON:: 07/08/18 ORDER # VISITS AND/OR THROUGH DATE: new continuation order thru 07/08/18 PLAN: Continue to work on progressive AROM to the R shoulder for completion of functional tasks
--- NOTE | 2018-06-21 10:31 | RS.OPPTDN ---
Subjective Date of Note: 06/21/18 Visit #: 16 Date of Evaluation: 05/06/18 Payer Source: MEDICARE Treatment Diagnosis: closed displaced fx of proximal end of R humerus. Current Subjective/complaints:: Patient says she is doing well with lifting her arm upward and in ABD, but would like to be able to reach higher into her cabinets with less difficulty. She mentions still having difficulty reaching behind her to fasten/unfasten her bra. However, she expresses being pleased with ability to iron and vacuum in funtional ranges. *Precautions: no lifting Interventions - Exercise/Activities/Manual Therapy Exercises/Activities: AAROM and stretching to the R shoulder flex, abd, scaption , and IR/ER. Long axis distraction and gentle grade I and II joint mobs. 3# wand for bilateral shoulder flexion and chest presses x 15 ea. Patient reassessed by PT for extension of therapy. 3# wand for bilateral shoulder flexion to ~100 degrees in sitting. 3# elbow flex/ext, sup/pron/ wrist flex/ ext x 15. 2# for punches x 10. Red tband for resisted shoulder flexion/ extension, green tband for scap retraction x 10. Green tband for pull downs x 10. Standin# cable spooler ball for functional reach on shelf multiple reps and for ABD. 2# dumbell for active shoulder flexion multiple reps with overpressures. Total minutes of Exercise: 52 Manual Therapy: na HOME EXERCISE PROGRAM: pt given written HEP including AAROM with wand for shld flex, horizontal add/abd, isometric shld flex, ext, add. Also instructed pt to continue pendulum ex. Cuff series no weights. - Charges Timed Code Treatment Minutes: 52 Total Treatment Time: 52 Procedures billed for this date of service:: ex3 Assessment: Patient continues with progress regarding AROM for the R shoulder especially in supine without difficulty or elevated pain, but also having strides against gravity in standing. She is able to perform many household tasks and ADLs for hygiene, but mainly has adapted or performing while in functional range. She still has some limitations that were addressed with PT during reassessment which we will be working towards achieving. Reaching into higher cabinets and donning/doffing undergarments. She is very compliant with HEP and very motivated to work towards more independence with the dominant UE. Patient Education: Education of Plan of Care Patient demonstrates compliance with HEP?: Yes Short Term Goals Goal #1: Improve R shld flex 100, abd 75 Goal to be met by: 05/27/18 Progress towards Goal:: Met Goal #2: Improved R UE strength shld flex 3-/5, abd 3-/5, Goal to be met by: 05/27/18 Progress towards Goal:: Met Goal #3: pt report decreased pain with activity at home Goal to be met by: 05/27/18 Progress towards Goal:: Met Goal #4: pt independent with initial HEP Goal to be met by: 05/27/18 Progress towards Goal:: Met Call Center Receptionist Goals Goal #1: Improve R UE shoulder flexion 160 abduction 150 Goal to be met by: 07/08/18 Progress towards goal: Progressing Goal #2: Improve RUE strength shoulder flex 3+/5, abd 3+/5, elbow flex/ext 5/5 Goal to be met by: 07/08/18 Progress towards goal: Progressing Goal #3: Pt report ability to return to normal activities at home. Goal to be met by: 07/08/18 Progress towards goal: Progressing Goal #4: Pt with improved ROM to allow pt to curl hair as well as reach bra strap Goal to be met by: 07/08/18 Progress towards goal: Progressing Plan PLAN OF CARE EXPIRES ON:: 07/08/18 ORDER # VISITS AND/OR THROUGH DATE: 07/08/18 PLAN: Continue to progress therex/ROM and strength to the R UE
--- NOTE | 2018-06-23 09:46 | RS.OPPTDN ---
Subjective Date of Note: 06/23/18 Visit #: 17 Date of Evaluation: 05/06/18 Payer Source: MEDICARE Treatment Diagnosis: closed displaced fx of proximal end of R humerus. Current Subjective/complaints:: Patient states she was sore yesterday after her treatment, but is pleased to know she is progressing. Soreness lasted only into that evening. *Precautions: no lifting Pain Assessment - Pain Description Pain Location: R medial border of scapula tender with palpation Interventions - Exercise/Activities/Manual Therapy Exercises/Activities: AAROM and stretching to the R shoulder flex, abd, scaption , and IR/ER. Long axis distraction and grade I and II joint mobs. Increased to 4# wand for bilateral shoulder flexion and chest presses x 15 ea. 3# elbow flex /ext, sup/pron/ wrist flex/ext, punches x 15. 2# for punches x 10. 1# for horizontal adduction for sternal and clavicular fibers x 5. Sitting: Manual mobilization for the R scapula during R shoulder Active flexion and abd. Red tband for bilateral shoulder ER x 10, green tband for scap retraction x 10. Green tband for pull downs x 10. 2# dumbell for active shoulder flexion multiple reps with overpressures. Green tband for standing pull downs x15. Shelf reaching with 2# advertising project manager ball from trunk to ~120 degrees flexion (shoulder) x 10. ROM arc for shulder abd/add x 10 ea in standing. Total minutes of Exercise: 52 Manual Therapy: na HOME EXERCISE PROGRAM: pt given written HEP including AAROM with wand for shld flex, horizontal add/abd, isometric shld flex, ext, add. Also instructed pt to continue pendulum ex. Cuff series no weights. - Objective Findings Observations,measurements,etc.: 136 degrees active shoulder flexion in supine with therapy wand - Charges Timed Code Treatment Minutes: 52 Total Treatment Time: 52 Procedures billed for this date of service:: ex3 Assessment: Patient progressing with AROM regarding flexion functional reaching and with strengthening against gravity as well. She demo occasional popping to the R shoulder during passive shoulder flexion, which does not reproduce pain. Patient Education: Body/Joint mechanics, Home Exercise Program Patient demonstrates compliance with HEP?: Yes Short Term Goals Goal #1: Improve R shld flex 100, abd 75 Goal to be met by: 05/27/18 Progress towards Goal:: Met Goal #2: Improved R UE strength shld flex 3-/5, abd 3-/5, Goal to be met by: 05/27/18 Progress towards Goal:: Met Goal #3: pt report decreased pain with activity at home Goal to be met by: 05/27/18 Progress towards Goal:: Met Goal #4: pt independent with initial HEP Goal to be met by: 05/27/18 Progress towards Goal:: Met Pricing Lead Goals Goal #1: Improve R UE shoulder flexion 160 abduction 150 Goal to be met by: 07/08/18 Progress towards goal: Progressing Goal #2: Improve RUE strength shoulder flex 3+/5, abd 3+/5, elbow flex/ext 5/5 Goal to be met by: 07/08/18 Progress towards goal: Progressing Goal #3: Pt report ability to return to normal activities at home. Goal to be met by: 07/08/18 Progress towards goal: Progressing Goal #4: Pt with improved ROM to allow pt to curl hair as well as reach bra strap Goal to be met by: 07/08/18 Progress towards goal: Progressing Plan PLAN OF CARE EXPIRES ON:: 07/08/18 ORDER # VISITS AND/OR THROUGH DATE: 07/08/18 PLAN: Patient to continue TIW to advance ROM and strength in functional ranges to achieve LTG.
== END 2018-06-24 23:59 ==
PROVIDERS: ATTEND Orthopaedic Surgery
DX: S42.291D Other displaced fracture of upper end of right humerus, subsequent encounter for fracture with routine healing (principal); M25.511 Pain in right shoulder

== ENCOUNTER 2018-07-07 08:15 | Outpatient (RCR) | payer OTHER ==
--- NOTE | 2018-06-28 09:39 | RS.OPPTDN ---
Subjective Date of Note: 06/28/18 Visit #: 18 Date of Evaluation: 05/06/18 Payer Source: MEDICARE Treatment Diagnosis: closed displaced fx of proximal end of R humerus. Current Subjective/complaints:: Patient says she continues to say she forces herself to use the R arm with reaching higher into cabinets. She says she is wanting to get back to playing ball with her grandsons. *Precautions: no lifting Interventions - Exercise/Activities/Manual Therapy Exercises/Activities: AAROM and stretching to the R shoulder flex, abd, scaption , and IR/ER. Long axis distraction and grade I and II joint mobs. Continued with scapular mobilization during stretching and ROM. 4# wand for bilateral shoulder flexion and chest presses x 15 ea. 3# elbow flex/ext, sup/pron/ wrist flex/ext, punches x 15. 3# for punches x 10. Contract/relax for R shoulder flexion with elbow straight to obtain increased range. Green tband for pull downs x 12. Sitting: Manual mobilization for the R scapula during R shoulder Active flexion and abd. Red tband for bilateral shoulder ER x 10, green tband for scap retraction x 10. 3# wand for bilateral shoulder flexion, AAROM for ABD with 3# wand x 8. Green tband for pull downs x 10. Shelf reaching with cones to reach @ ~130 [address] stretch and to place back down at trunk level x 6. She bounces ball against the wall x 20 various heights to challenge range above head and shoulder level as well. Forcefully bounces ball against the floor and catches x 15. ROM arc for ABD 2x10 in standing. Total minutes of Exercise: 50 Manual Therapy: na HOME EXERCISE PROGRAM: pt given written HEP including AAROM with wand for shld flex, horizontal add/abd, isometric shld flex, ext, add. Also instructed pt to continue pendulum ex. Cuff series no weights. - Charges Timed Code Treatment Minutes: 50 Total Treatment Time: 50 Procedures billed for this date of service:: ex3 Assessment: Patient experiencing general muscle soreness and fatigue following treatment, but does demo improved ROM with reaching activities at the shelf and with resistance with standing weighted exercises. She demo less compensation and more control with eccentric contractions. She vijaya added ball exercises well and is similar to the activities she is wanting to return to playing with her grandchildren. Patient Education: Body/Joint mechanics, Home Exercise Program Patient demonstrates compliance with HEP?: Yes Short Term Goals Goal #1: Improve R shld flex 100, abd 75 Goal to be met by: 05/27/18 Progress towards Goal:: Met Goal #2: Improved R UE strength shld flex 3-/5, abd 3-/5, Goal to be met by: 05/27/18 Progress towards Goal:: Met Goal #3: pt report decreased pain with activity at home Goal to be met by: 05/27/18 Progress towards Goal:: Met Goal #4: pt independent with initial HEP Goal to be met by: 05/27/18 Progress towards Goal:: Met Pattern Data Operator Goals Goal #1: Improve R UE shoulder flexion 160 abduction 150 Goal to be met by: 07/08/18 Progress towards goal: Progressing Goal #2: Improve RUE strength shoulder flex 3+/5, abd 3+/5, elbow flex/ext 5/5 Goal to be met by: 07/08/18 Progress towards goal: Partially Met Goal #3: Pt report ability to return to normal activities at home. Goal to be met by: 07/08/18 Progress towards goal: Progressing Goal #4: Pt with improved ROM to allow pt to curl hair as well as reach bra strap Goal to be met by: 07/08/18 Progress towards goal: Partially Met (she is now able to curl her hair) Plan PLAN OF CARE EXPIRES ON:: 07/08/18 ORDER # VISITS AND/OR THROUGH DATE: 07/08/18 PLAN: Patient to continue 2-3 times until next Wednesday.
--- NOTE | 2018-07-04 09:58 | RS.OPPTDN ---
Subjective Date of Note: 06/30/18 Visit #: 19 Date of Evaluation: 05/06/18 Payer Source: MEDICARE Treatment Diagnosis: closed displaced fx of proximal end of R humerus. Current Subjective/complaints:: Patient says she was sore after her last session beginning more progressive exercises. She says she is happy to feel that she is advancing and gaining motion and strength. *Precautions: no lifting Interventions - Exercise/Activities/Manual Therapy Exercises/Activities: AAROM and stretching to the R shoulder flex, abd, scaption , and IR/ER. Long axis distraction and grade I and II joint mobs. Continued with scapular mobilization during stretching and ROM. 4# wand for bilateral shoulder flexion and chest presses x 15 ea. 3# elbow flex/ext, sup/pron/ wrist flex/ext, punches x 15. 3# for punches x 10. Contract/relax for R shoulder flexion with elbow straight to obtain increased range. Green tband for pull downs x 12. Sitting: Manual mobilization for the R scapula during R shoulder Active flexion and abd. Red tband for bilateral shoulder ER x 10, green tband for scap retraction x 10. 3# wand for bilateral shoulder flexion, AAROM for ABD with 3# wand x 8. Green tband for pull downs x 10. Shelf reaching with cones to reach @ ~130 [address] stretch and to place back down at trunk level x 6. She bounces ball against the wall x 20 various heights to challenge range above head and shoulder level as well. Forcefully bounces ball against the floor and catches x 15. ROM arc for ABD 2x10 in standing. Total minutes of Exercise: 54 Manual Therapy: na HOME EXERCISE PROGRAM: pt given written HEP including AAROM with wand for shld flex, horizontal add/abd, isometric shld flex, ext, add. Also instructed pt to continue pendulum ex. Cuff series no weights. - Charges Timed Code Treatment Minutes: 54 Total Treatment Time: 54 Procedures billed for this date of service:: ex4 Patient demonstrates compliance with HEP?: Yes Short Term Goals Goal #1: Improve R shld flex 100, abd 75 Goal to be met by: 05/27/18 Progress towards Goal:: Met Goal #2: Improved R UE strength shld flex 3-/5, abd 3-/5, Goal to be met by: 05/27/18 Progress towards Goal:: Met Goal #3: pt report decreased pain with activity at home Goal to be met by: 05/27/18 Progress towards Goal:: Met Goal #4: pt independent with initial HEP Goal to be met by: 05/27/18 Progress towards Goal:: Met Snf Goals Goal #1: Improve R UE shoulder flexion 160 abduction 150 Goal to be met by: 07/08/18 Progress towards goal: Progressing Goal #2: Improve RUE strength shoulder flex 3+/5, abd 3+/5, elbow flex/ext 5/5 Goal to be met by: 07/08/18 Progress towards goal: Partially Met Goal #3: Pt report ability to return to normal activities at home. Goal to be met by: 07/08/18 Progress towards goal: Partially Met Goal #4: Pt with improved ROM to allow pt to curl hair as well as reach bra strap Goal to be met by: 07/08/18 Progress towards goal: Partially Met (she is now able to curl her hair) Plan PLAN OF CARE EXPIRES ON:: 07/08/18 ORDER # VISITS AND/OR THROUGH DATE: 07/08/18 PLAN: Patient to be reassessed next week for 20th session. She is to continue to progress AROM advancing with weight to improve functional ranges and household tasks.
--- NOTE | 2018-07-05 09:49 | RS.OPPTDN ---
Subjective Date of Note: 07/04/18 Visit #: 20 Date of Evaluation: 05/06/18 Payer Source: MEDICARE Treatment Diagnosis: closed displaced fx of proximal end of R humerus. Current Subjective/complaints:: Patient says she has ached and was stiff over the weekend because of consistent rain, but she "worked" her arm harder. She says she forces herself to reach with the R arm higher than is required at times. *Precautions: no lifting Interventions - Exercise/Activities/Manual Therapy Exercises/Activities: AAROM and progressive stretching to the R shoulder flex, abd, scaption, and IR/ER. Long axis distraction and grade I and II joint mobs. Continued with scapular mobilization during stretching and ROM in supine and sitting. 4# wand for bilateral shoulder flexion and chest presses x 15 ea. 3# elbow flex/ext, sup/pron/ wrist flex/ext, punches x 15. 3# for punches x 10. 3 # dumbell for shoulder flexion x 10. Contract/relax for R shoulder flexion with elbow straight to obtain increased range. Progressed to Blue tband for pull downs (standing) x 12. Sitting: Manual mobilization for the R scapula during R shoulder Active flexion and abd. Red tband for bilateral shoulder ER x 10, green tband for scap retraction x 15. 3# wand for bilateral shoulder flexion, AAROM for ABD with 3# wand x 8. 1# cuff for shoulder abd x 10 with assisted scap mobilization. She bounces ball against the wall with 1# cuff x 20 various heights to challenge range above head and shoulder level as well. Forcefully bounces ball against the floor and catches 1# cuff on R hand x 15. ROM arc for ABD 2x10 in standing. Total minutes of Exercise: 54 Manual Therapy: na HOME EXERCISE PROGRAM: pt given written HEP including AAROM with wand for shld flex, horizontal add/abd, isometric shld flex, ext, add. Also instructed pt to continue pendulum ex. Cuff series no weights. - Objective Findings Observations,measurements,etc.: 55/80 for UE Functional Index revealing 32% impairment - Charges Timed Code Treatment Minutes: 54 Total Treatment Time: 54 Procedures billed for this date of service:: ex4 Assessment: Patient very compliant with HeP and progressing accordingly. She is now able to actively abd the R UE with 1-2# weight to ~100 degrees with less compensation/lean. She is able to progress to blue tband and 3# for shoulder flexion in standing with improved control. Improved scapular mobility during sitting ABD and flexion actively. Patient demonstrates compliance with HEP?: Yes Short Term Goals Goal #1: Improve R shld flex 100, abd 75 Goal to be met by: 05/27/18 Progress towards Goal:: Met Goal #2: Improved R UE strength shld flex 3-/5, abd 3-/5, Goal to be met by: 05/27/18 Progress towards Goal:: Met Goal #3: pt report decreased pain with activity at home Goal to be met by: 05/27/18 Progress towards Goal:: Met Goal #4: pt independent with initial HEP Goal to be met by: 05/27/18 Progress towards Goal:: Met Snf Goals Goal #1: Improve R UE shoulder flexion 160 abduction 150 Goal to be met by: 07/08/18 Progress towards goal: Progressing Goal #2: Improve RUE strength shoulder flex 3+/5, abd 3+/5, elbow flex/ext 5/5 Goal to be met by: 07/08/18 Progress towards goal: Partially Met Goal #3: Pt report ability to return to normal activities at home. Goal to be met by: 07/08/18 Progress towards goal: Partially Met Goal #4: Pt with improved ROM to allow pt to curl hair as well as reach bra strap Goal to be met by: 07/08/18 Progress towards goal: Partially Met (she is now able to curl her hair) Plan PLAN OF CARE EXPIRES ON:: 07/08/18 ORDER # VISITS AND/OR THROUGH DATE: 07/08/18 PLAN: Patient to complete continuation orders this week. Prepare for discharge.
--- NOTE | 2018-07-05 10:22 | RS.OPPTDN ---
Subjective Date of Note: 07/05/18 Visit #: 21 Date of Evaluation: 05/06/18 Payer Source: MEDICARE Treatment Diagnosis: closed displaced fx of proximal end of R humerus. Current Subjective/complaints:: Patient reports being sore the past few days from adding progressed therex. She says she only has trouble now with reaching her bra. She says she is closer to donning/doffing than a few weeks ago however. *Precautions: no lifting Pain Assessment - Pain Description Pain Location: R shoulder Interventions - Exercise/Activities/Manual Therapy Exercises/Activities: AAROM and stretching to the R shoulder flex, abd, scaption , and IR/ER. Long axis distraction and grade I and II joint mobs. Continued with scapular mobilization during stretching and ROM. 4# wand for bilateral shoulder flexion and chest presses x 15 ea. 3# elbow flex/ext, sup/pron/ wrist flex/ext, punches x 15. 3# for punches x 10. Contract/relax for R shoulder flexion with elbow straight to obtain increased range. Green tband for pull downs x 12. Sitting: Manual mobilization for the R scapula during R shoulder Active flexion and abd. Green tband shoulder pull downs, IR x 10. 1 1/2# cuff on R wrist for bilateral ball lift overhead in supine x 10. Progressed to green tband for bilateral shoulder ER x 10, green tband for scap retraction x 10. 3# wand for bilateral shoulder flexion, AAROM for ABD with 3# wand x 8. Green tband for pull downs x 10. Shelf reaching with cones to reach @ ~135 [address] stretch and to place back down at trunk level x 6. Total minutes of Exercise: 54 Manual Therapy: na HOME EXERCISE PROGRAM: pt given written HEP including AAROM with wand for shld flex, horizontal add/abd, isometric shld flex, ext, add. Also instructed pt to continue pendulum ex. Cuff series no weights. - Charges Timed Code Treatment Minutes: 54 Total Treatment Time: 54 Procedures billed for this date of service:: ex4 Assessment: Patient demo ~1 inch from being able to reach bra strap in sitting. She is shown towel stretch for IR to improve range at home. She has returned and continues to push herself for more range regarding flexion/abd at home with ADLs/household tasks. Patient Education: Home Exercise Program, Education of Plan of Care Patient demonstrates compliance with HEP?: Yes Short Term Goals Goal #1: Improve R shld flex 100, abd 75 Goal to be met by: 05/27/18 Progress towards Goal:: Met Goal #2: Improved R UE strength shld flex 3-/5, abd 3-/5, Goal to be met by: 05/27/18 Progress towards Goal:: Met Goal #3: pt report decreased pain with activity at home Goal to be met by: 05/27/18 Progress towards Goal:: Met Goal #4: pt independent with initial HEP Goal to be met by: 05/27/18 Progress towards Goal:: Met [employer] Goals Goal #1: Improve R UE shoulder flexion 160 abduction 150 Goal to be met by: 07/08/18 Progress towards goal: Progressing Goal #2: Improve RUE strength shoulder flex 3+/5, abd 3+/5, elbow flex/ext 5/5 Goal to be met by: 07/08/18 Progress towards goal: Met Goal #3: Pt report ability to return to normal activities at home. Goal to be met by: 07/08/18 Progress towards goal: Partially Met Goal #4: Pt with improved ROM to allow pt to curl hair as well as reach bra strap Goal to be met by: 07/08/18 Progress towards goal: Partially Met (she is now able to curl her hair) Plan PLAN OF CARE EXPIRES ON:: 07/08/18 ORDER # VISITS AND/OR THROUGH DATE: 07/08/18 PLAN: Patient to continue x 1 more visit
--- NOTE | 2018-07-07 09:25 | RS.OPPTDC ---
Date of Discharge: 07/07/18 Date of Evaluation: 05/06/18 Number of Visits: 21 Treatment Diagnosis: closed displaced fx of proximal end of R humerus. Current Level of Function: ROM R shld flex 147, abd 138. pt is independent with HEP. pt upper ext functional index score improved from 13/80(84%) to 72/80(10%). Current Complaints/Gains: pt states she has resumed normal daily activities including vacuuming, playing ball with grandsons, curling her hair. States she still cannot reach her bra strap but only lacks approx 1inch from reaching. pt states she only has occasional discomfort if stretching. Pain Assessment - Pain Description Other Comments regarding Pain:: report no pain only soreness in R ant shld Functional Outcome Measure UE Functional Index: 72 (10%) - G Codes & Severity Modifier G Codes & Modifier: carrying moving and handling DC CI. carrying moving and handling goal CJ Source of G Code score: upper extremity functional scale Observation - Observation Inspection: no swelling noted Posture: Forward Head, Rounded Shoulders Handedness: Right Gait - Gait Pattern General Gait Pattern Observation: No Deviations/Normal General Range of Motion: LUE. RUE elbow wrist and hand WFL's. BLE WFL's Interventions - Exercise/Activities/Manual Therapy Exercises/Activities: pt received AAROM and stretch R shld flex, abd, scaption, IR/ER with distraction and gentle mobilization. pt performed B shld flex, chest press with 4# wand x 15 reps, elbow flex/ext , sup/pronation, and wrist flex/ ext with 3# weight x 15 reps. pt also performed pull downs, scapular retraction with elbow ext and elbow flex 2 sets of 10 reps. pr performed shelf reaching with cones as well as with 2#ball. Ball bouncing against wall with 3# weight to R wrist. Total minutes of Exercise: 44 Manual Therapy: na HOME EXERCISE PROGRAM: pt given written HEP including AAROM with wand for shld flex, horizontal add/abd, isometric shld flex, ext, add. Also instructed pt to continue pendulum ex. Cuff series no weights. - Charges Timed Code Treatment Minutes: 44 Total Treatment Time: 50 Procedures billed for this date of service:: exercise 3 Assessment Assessment: pt has met all STG and LTG 2, 3, progressing well toward 1, 4. pt has made significant improvement with ROM, strength, and decreased pain. ROM improved from R shld flex 90 abd 41 to at dc flex 149 abd 138. UE functional index score improved from 13/80 to 72/80. pt with no current c/o pain Patient Education: Home Exercise Program, Education of Plan of Care Rehab Potential: Good Short Term Goals Goal #1: Improve R shld flex 100, abd 75 Goal to be met by: 05/27/18 Progress towards Goal:: Met Goal #2: Improved R UE strength shld flex 3-/5, abd 3-/5, Goal to be met by: 05/27/18 Progress towards Goal:: Met Goal #3: pt report decreased pain with activity at home Goal to be met by: 05/27/18 Progress towards Goal:: Met Goal #4: pt independent with initial HEP Goal to be met by: 05/27/18 Progress towards Goal:: Met Nursing Home Goals Goal #1: Improve R UE shoulder flexion 160 abduction 150 Goal to be met by: 07/08/18 Progress towards goal: Progressing Comments: shld flex 149, abd 138 improved from eval flex 90 abd 41 Goal #2: Improve RUE strength shoulder flex 3+/5, abd 3+/5, elbow flex/ext 5/5 Goal to be met by: 07/08/18 Progress towards goal: Met Goal #3: Pt report ability to return to normal activities at home. Goal to be met by: 07/08/18 Progress towards goal: Met Goal #4: Pt with improved ROM to allow pt to curl hair as well as reach bra strap Goal to be met by: 07/08/18 Progress towards goal: Partially Met (she is now able to curl her hair) Plan Reason for Discharge:: pt has met most goals, reached max potential at this time.
== END 2018-07-24 23:59 ==
PROVIDERS: ATTEND Orthopaedic Surgery
DX: M25.511 Pain in right shoulder (principal)